=== PATIENT | female | born 1940 | race Caucasian/White ===

== ENCOUNTER 2016-07-08 14:28 | Inpatient (IN) | payer MEDICARE, MEDICAID ==
[2016-07-08 14:37] VITALS: BMI 32.9
[2016-07-08 15:23] LABS: BASO # 0.1 K/uL (0.0-0.2); BASO % 1.3 % (0.0-2.0); EOS # 0.1 K/uL (0.0-0.7); EOS % 1.1 % (0.0-4.0); HEMATOCRIT 33.5 % (35.0-51.0); LYMPH # 2.6 K/uL (1.0-4.3); LYMPH % 36.4 % (20.0-40.0); MEAN CELL VOLUME 72.1 fL (80.0-94.0); MEAN CORPUSCULAR HEMOGLOBIN 22.3 pg (27.0-31.0); MEAN CORPUSCULAR HGB CONC 30.9 g/dL (33.0-37.0); MEAN PLATELET VOLUME 8.6 fL (7.2-11.7); MONO # 0.5 K/uL (0.0-0.8); MONO % 6.9 % (0.0-10.0); NRBC % 0.1 % (0.0-2.0); RED CELL DISTRIBUTION WIDTH 17.8 % (11.5-14.5); WHITE BLOOD COUNT 7.2 K/uL (4.8-10.8)
[2016-07-08 15:31] LABS: CHLORIDE 103 mmol/L (98-107); SODIUM 139 mmol/L (132-148)
[2016-07-08 15:32] LABS: POTASSIUM 3.3 mmol/L (3.6-5.2)
[2016-07-08 15:33] LABS: URINE BILIRUBIN NEGATIVE (NEGATIVE); URINE BLOOD NEGATIVE (NEGATIVE); URINE COLOR Straw (YELLOW); URINE GLUCOSE (UA) NORMAL (Normal); URINE KETONE NEGATIVE (NEGATIVE); URINE LEUKOCYTE ESTERASE NEG Leu/uL (Negative); URINE PROTEIN NEGATIVE (NEGATIVE); URINE UROBILINOGEN NORMAL mg/dL (0.2-1.0); WBC URINE 1 /hpf (0-5)
[2016-07-08 15:34] LABS: ALB/GLOB RATIO 1.2 (1.0-2.1); ALKALINE PHOSPHATASE 55 U/L (38-126); ALT/SGPT 13 U/L (21-72); AST/SGOT 25 U/L (17-59); BILIRUBIN,TOTAL 0.2 mg/dL (0.2-1.3); BLOOD UREA NITROGEN 10 mg/dL (9-20); CALCIUM 8.3 mg/dl (8.6-10.4); CARBON DIOXIDE 24 mmol/L (22-30); GFR AFRICAN-AMERICAN > 60; GLUCOSE,RANDOM 84 mg/dL (75-110); TOTAL PROTEIN 7.1 g/dL (6.3-8.3)
--- NOTE | 2016-07-08 16:52 | RAD ---
PROCEDURE: CHEST RADIOGRAPH, 1 VIEW. Technique: Single view portable semi erect @ 15:20. HISTORY: chest pain COMPARISON: None available. FINDINGS: LUNGS: Clear. PLEURA: No pneumothorax or pleural fluid seen. CARDIOVASCULAR: No radiographic findings to suggest acute or significant cardiovascular disease. OSSEOUS STRUCTURES: No significant abnormalities. VISUALIZED UPPER ABDOMEN: Normal. OTHER FINDINGS: None. IMPRESSION: No active disease.
--- NOTE | 2016-07-08 17:02 | C.PDOC ---
History Of Present Illness 76 y/o female presents to the ED with complains of substernal chest pain which onset earlier today; pain is dull and nonradiating. Pt denies SOB, fever, cough , vomiting or any other complaints. Pt was given aspirin and nitroglycerin by EMS prior to arrival. Pt currently denies any chest pain. PMD Linda Tinoco, no recent cardiac workup. Chief Complaint (Nursing): Chest Pain History Per: Patient History/Exam Limitations: no limitations Onset/Duration Of Symptoms: Hrs Current Symptoms Are (Timing): Gone Severity: Mild Quality: Dull Modifying Factors: None Nitro Therapy Administered: Per EMS Recent travel outside of the [place]: No Past Medical History Reviewed: Historical Data, Nursing Documentation, Vital Signs Vital Signs: Last Vital Signs Temp 98.4 F 07/08/16 14:35 Pulse 64 07/08/16 17:03 Resp 17 07/08/16 17:03 BP 133/62 07/08/16 17:03 Pulse Ox 97 07/08/16 17:04 - Medical History PMH: HTN, Hypercholesterolemia Family History: States: Unknown Family Hx - Social History Hx Alcohol Use: No Hx Substance Use: No - Immunization History Hx Tetanus Toxoid Vaccination: Yes (2015) Hx Influenza Vaccination: Yes (2016) Hx Pneumococcal Vaccination: No Review Of Systems Except As Marked, All Systems Reviewed And Found Negative. Constitutional: Negative for: Fever Cardiovascular: Positive for: Chest Pain (resolved). Negative for: Palpitations Respiratory: Negative for: Cough, Shortness of Breath Gastrointestinal: Negative for: Nausea, Vomiting Physical Exam - Physical Exam Appears: Non-toxic, No Acute Distress Skin: Warm, Dry, No Rash Head: Atraumatic, Normacephalic Neck: Normal ROM, Supple Chest: Symmetrical Cardiovascular: Rhythm Regular, No Murmur Respiratory: Normal Breath Sounds, No Rales, No Rhonchi, No Wheezing Gastrointestinal/Abdominal: Soft, No Tenderness Extremity: No Pedal Edema Extremity: Bilateral: Atraumatic Neurological/Psych: Oriented x3 ED Course And Treatment - Laboratory Results Result Diagrams: 07/08/16 15:15 07/08/16 15:15 ECG: Interpreted By Me, Viewed By Me ECG Rhythm: Sinus Rhythm Interpretation Of ECG: normal intervals and axis Rate From EC (BPM) O2 Sat by Pulse Oximetry: 97 (on room air) Progress Note: Spoke to Linda Tinoco, will admit patient to telemetry. Disposition Discussed With : Lana iTnoco - Disposition Disposition: HOSPITALIZED Disposition Time: 16:00 Condition: STABLE - Clinical Impression Clinical Impression: Chest pain - Scribe Statement The provider has reviewed the documentation as recorded by the Germaniaibankit Gomez Provider Attestation: All medical record entries made by the Germaniaibe were at my direction and personally dictated by me. I have reviewed the chart and agree that the record accurately reflects my personal performance of the history, physical exam, medical decision making, and the department course for this patient. I have also personally directed, reviewed, and agree with the discharge instructions and disposition.
--- NOTE | 2016-07-08 18:50 | CP.PCM.HP ---
History of Present Illness - History of Present Illness History of Present Illness: 76-year-old female presented to ED with complaints of substernal chest pain which onset earlier today. Pain is dull and nonradiating. Patient denies SOB, fever, cough, vomiting or any other complaints. Patient was given aspirin and nitroglycerin by EMS prior to arrival. Patient currently denies any chest pain. Present on Admission - Present on Admission Any Indicators Present on Admission: No Past Patient History - Past Social History Smoking Status: Never Smoked - CARDIAC Hx Hypercholesterolemia: Yes Hx Hypertension: Yes - PSYCHIATRIC Hx Substance Use: No - SURGICAL HISTORY Hx Surgeries: Yes Other/Comment: bone growth surgery near buttock area - ANESTHESIA Hx Anesthesia: No Meds Allergies/Adverse Reactions: Allergies Allergy/AdvReac Type Severity Reaction Status Date / Time ibuprofen [From Motrin] Allergy VOMITING Verified 07/08/16 14:36 Results - Vital Signs Recent Vital Signs: Last Vital Signs Temp 98.4 F 07/08/16 14:35 Pulse 64 07/08/16 17:03 Resp 17 07/08/16 17:03 BP 133/62 07/08/16 17:03 Pulse Ox 97 07/08/16 17:57 - Labs Result Diagrams: 07/09/16 11:24 07/09/16 11:24 Assessment & Plan (1) Abrasion hand Status: Acute (2) Chest pain Status: Acute (3) Contusion of knee, right Status: Acute (4) HTN (hypertension) Status: Acute (5) Prophylactic measure Status: Acute (6) Right wrist sprain Status: Acute - Assessment and Plan (Free Text) Plan: Consult cardiology Pending cardiac enzymes Aspirin Microzide Lovenox Protonix
[2016-07-08] MEDS ORDERED: Potassium Chloride 20 mEq ER Tab PO STA (19:54)
--- NOTE | 2016-07-09 07:15 | CP.PCM.PN ---
Subjective - Date & Time of Evaluation Date of Evaluation: 07/09/16 Time of Evaluation: 09:00 - Subjective Subjective: Dr. Tinoco service: Patient seen and examined in room. Patient says she gets sharp stabbing chest pain that last a few seconds radiating to her back. Patient says she never had the same kind of chest pain before. She denies shortness of breath, palpitations, cough, fever, chills, nausea, vomiting, or diaphoresis. Objective - Vital Signs/Intake and Output Vital Signs (last 24 hours): Temp Pulse Resp BP Pulse Ox 98 F 66 20 124/69 99 07/08/16 23:05 07/08/16 23:05 07/08/16 23:05 07/08/16 23:05 07/08/16 23:05 Intake and Output: 07/09/16 07/09/16 06:59 18:59 Intake Total 120 Balance 120 - Medications Medications: Current Medications Aspirin (Aspirin) 325 mg PO DAILY [facility] Enoxaparin Sodium (Lovenox) 40 mg SC DAILY [facility] Pantoprazole Sodium (Protonix Ec Tab) 40 mg PO DAILY [facility] Potassium Chloride (K-Dur 20 Meq Er Tab) 40 meq PO 0800 [facility] - Constitutional Appears: Non-toxic, No Acute Distress - Head Exam Head Exam: ATRAUMATIC, NORMAL INSPECTION, NORMOCEPHALIC - Eye Exam Eye Exam: Normal appearance - ENT Exam ENT Exam: Normal Exam - Respiratory Exam Respiratory Exam: Clear to Ausculation Bilateral. absent: Rhonchi, Wheezes - Cardiovascular Exam Cardiovascular Exam: REGULAR RHYTHM, RRR, +S1, +S2, Murmur. absent: Gallop, Rubs - GI/Abdominal Exam GI & Abdominal Exam: Soft, Normal Bowel Sounds. absent: Tenderness - Extremities Exam Extremities Exam: Normal Inspection. absent: Pedal Edema - Psychiatric Exam Psychiatric exam: Normal Affect, Normal Mood Assessment and Plan (1) Chest pain Assessment & Plan: Patient admitted yesterday for chest pain, she has a abnormal stress test from [address]. consulted [address] Jefferson and also ordered an echo, cardiac enzymes are negative, patient given 325 of Aspirin, continue her htn medication. Status: Acute (2) HTN (hypertension) Assessment & Plan: continue her home HCTZ Status: Acute (3) Prophylactic measure Assessment & Plan: Protonix 40mg Lovenox 40mg Status: Acute
[2016-07-09] MEDS: Potassium Chloride 20 mEq ER Tab PO SCH (08:50)
[2016-07-09] MEDS: Enoxaparin 40 mg Syringe SC SCH (09:14)
[2016-07-09] MEDS: Pantoprazole 40 mg EC Tab PO SCH (09:15)
[2016-07-09 11:41] LABS: BASO % 0.4 % (0.0-2.0); EOS % 0.7 % (0.0-4.0); HEMATOCRIT 34.2 % (34.0-47.0); LYMPH # 1.9 K/uL (1.0-4.3); LYMPH % 36.4 % (20.0-40.0); MEAN CELL VOLUME 71.8 fL (81.0-99.0); MEAN CORPUSCULAR HEMOGLOBIN 22.3 pg (27.0-31.0); MEAN CORPUSCULAR HGB CONC 31.1 g/dL (33.0-37.0); MEAN PLATELET VOLUME 8.6 fL (7.2-11.7); MONO # 0.4 K/uL (0.0-0.8); MONO % 6.8 % (0.0-10.0); NRBC % 0.1 % (0.0-2.0); RED CELL DISTRIBUTION WIDTH 17.7 % (11.5-14.5); WHITE BLOOD COUNT 5.3 K/uL (4.8-10.8)
[2016-07-09 12:07] LABS: CHLORIDE 101 mmol/L (98-107); SODIUM 140 mmol/L (132-148)
[2016-07-09 12:08] LABS: POTASSIUM 3.8 mmol/L (3.6-5.2)
[2016-07-09 12:10] LABS: ALB/GLOB RATIO 1.2 (1.0-2.1); ALKALINE PHOSPHATASE 55 U/L (38-126); ALT/SGPT 15 U/L (9-52); AST/SGOT 23 U/L (14-36); BILIRUBIN,TOTAL 0.3 mg/dL (0.2-1.3); BLOOD UREA NITROGEN 11 mg/dL (7-17); CARBON DIOXIDE 27 mmol/L (22-30); GFR AFRICAN-AMERICAN > 60; GLUCOSE,RANDOM 107 mg/dL (65-105); PHOSPHOROUS 3.2 mg/dL (2.5-4.5); TOTAL PROTEIN 7.1 g/dL (6.3-8.3)
[2016-07-09 12:11] LABS: CALCIUM 9.1 mg/dl (8.6-10.4); MAGNESIUM 2.1 mg/dL (1.6-2.3)
--- NOTE | 2016-07-09 13:31 | CP.PCM.PN ---
Subjective - Date & Time of Evaluation Date of Evaluation: 07/09/16 Time of Evaluation: 10:20 - Subjective Subjective: denies chest pain currently Objective - Vital Signs/Intake and Output Vital Signs (last 24 hours): Temp Pulse Resp BP Pulse Ox 97.6 F 67 18 142/85 96 07/09/16 07:10 07/09/16 07:10 07/09/16 07:10 07/09/16 07:10 07/09/16 07:10 Intake and Output: 07/09/16 07/09/16 06:59 18:59 Intake Total 120 Balance 120 - Medications Medications: Current Medications Aspirin (Aspirin Chewable) 81 mg PO DAILY [facility] Enoxaparin Sodium (Lovenox) 40 mg SC DAILY [facility] Last Admin: 07/09/16 09:14 Dose: 40 mg Hydrochlorothiazide (Microzide) 12.5 mg PO DAILY [facility] Last Admin: 07/09/16 09:15 Dose: 12.5 mg Pantoprazole Sodium (Protonix Ec Tab) 40 mg PO DAILY [facility] Last Admin: 07/09/16 09:15 Dose: 40 mg Potassium Chloride (K-Dur 20 Meq Er Tab) 40 meq PO 0800 [facility] Last Admin: 07/09/16 08:50 Dose: 40 meq - Labs Labs: 07/09/16 11:24 07/09/16 11:24 - Constitutional Appears: Well - Head Exam Head Exam: ATRAUMATIC, NORMAL INSPECTION, NORMOCEPHALIC - Eye Exam Eye Exam: EOMI, Normal appearance, PERRL Pupil Exam: NORMAL ACCOMODATION, PERRL - ENT Exam ENT Exam: Mucous Membranes Moist, Normal Exam - Neck Exam Neck Exam: Full ROM, Normal Inspection. absent: Lymphadenopathy - Respiratory Exam Respiratory Exam: Decreased Breath Sounds - Cardiovascular Exam Cardiovascular Exam: REGULAR RHYTHM, +S1, +S2 - GI/Abdominal Exam GI & Abdominal Exam: Soft, Diminished Bowel Sounds - Rectal Exam Rectal Exam: Deferred Assessment and Plan - Assessment and Plan (Free Text) Plan: current meds: Aspirin Enoxaparin Hydrochlorothiazide Pantoprazole Potassium Chloride troponin -ve f/u Dr. Jefferson
[2016-07-09 17:16] VITALS: RESP 20
--- NOTE | 2016-07-09 22:33 | CP.PCM.CON ---
History of Present Illness - History of Present Illness History of Present Illness: Patient seen and evaluated Admitted with chest pain Stress test Tuesday 76 y/o female presents to the ED with complains of substernal chest pain which onset earlier yesterday; pain is dull and nonradiating. Pt denies SOB, fever, cough, vomiting or any other complaints. Pt was given aspirin and nitroglycerin by EMS prior to arrival. Pt currently denies any chest pain. PMD Linda Tinoco, no recent cardiac workup. Chief Complaint (Nursing): Chest Pain History Per: Patient History/Exam Limitations: no limitations Onset/Duration Of Symptoms: Hrs Current Symptoms Are (Timing): Gone Severity: Mild Quality: Dull Modifying Factors: None Nitro Therapy Administered: Per EMS Recent travel outside of the [place]: No - Medical History PMH: HTN, Hypercholesterolemia Family History: States: Unknown Family Hx - Social History Hx Alcohol Use: No Hx Substance Use: No - Immunization History Hx Tetanus Toxoid Vaccination: Yes (2015) Hx Influenza Vaccination: Yes (2015) Hx Pneumococcal Vaccination: No Review Of Systems Except As Marked, All Systems Reviewed And Found Negative. Constitutional: Negative for: Fever Cardiovascular: Positive for: Chest Pain (resolved). Negative for: Palpitations Respiratory: Negative for: Cough, Shortness of Breath Gastrointestinal: Negative for: Nausea, Vomiting Physical Exam - Physical Exam Appears: Non-toxic, No Acute Distress Skin: Warm, Dry, No Rash Head: Atraumatic, Normacephalic Neck: Normal ROM, Supple Chest: Symmetrical Cardiovascular: Rhythm Regular, No Murmur Respiratory: Normal Breath Sounds, No Rales, No Rhonchi, No Wheezing Gastrointestinal/Abdominal: Soft, No Tenderness Extremity: No Pedal Edema Extremity: Bilateral: Atraumatic Neurological/Psych: Oriented x3 Past Patient History - Past Social History Smoking Status: Never Smoked - CARDIAC Hx Hypercholesterolemia: Yes Hx Hypertension: Yes - PULMONARY Hx Respiratory Disorders: No - NEUROLOGICAL Hx Neurological Disorder: No - HEENT Hx HEENT Problems: No - RENAL Hx Chronic Kidney Disease: No - ENDOCRINE/METABOLIC Hx Endocrine Disorders: No - HEMATOLOGICAL/ONCOLOGICAL Hx Blood Transfusions: No - INTEGUMENTARY Hx Dermatological Problems: No - MUSCULOSKELETAL/RHEUMATOLOGICAL Hx Falls: No - GASTROINTESTINAL Hx Gastrointestinal Disorders: No - GENITOURINARY/GYNECOLOGICAL Hx Genitourinary Disorders: No - PSYCHIATRIC Hx Psychophysiologic Disorder: No Hx Substance Use: No - SURGICAL HISTORY Hx Surgeries: Yes Other/Comment: bone growth surgery near buttock area - ANESTHESIA Hx Anesthesia: Yes Hx Anesthesia Reactions: No Hx Malignant Hyperthermia: No Has any member of the family had a problem w/ anesthesia?: No Meds Allergies/Adverse Reactions: Allergies Allergy/AdvReac Type Severity Reaction Status Date / Time ibuprofen [From Motrin] Allergy VOMITING Verified 07/08/16 14:36 - Medications Medications: Current Medications Aspirin (Aspirin Chewable) 81 mg PO DAILY [facility] Enoxaparin Sodium (Lovenox) 40 mg SC DAILY [facility] Last Admin: 07/09/16 09:14 Dose: 40 mg Hydrochlorothiazide (Microzide) 12.5 mg PO DAILY [facility] Last Admin: 07/09/16 09:15 Dose: 12.5 mg Pantoprazole Sodium (Protonix Ec Tab) 40 mg PO DAILY [facility] Last Admin: 07/09/16 09:15 Dose: 40 mg Potassium Chloride (K-Dur 20 Meq Er Tab) 40 meq PO 0800 [facility] Last Admin: 07/09/16 08:50 Dose: 40 meq Results - Vital Signs Recent Vital Signs: Last Vital Signs Temp 98.1 F 07/09/16 16:00 Pulse 65 07/09/16 16:00 Resp 20 07/09/16 16:00 BP 119/80 07/09/16 16:00 Pulse Ox 98 07/09/16 16:00 - Labs Result Diagrams: 07/09/16 11:24 07/09/16 11:24 Labs: Laboratory Results - last 24 hr 07/09/16 07/09/16 03:39 11:24 WBC 5.3 RBC 4.76 Hgb 10.6 L Hct 34.2 MCV 71.8 L MCH 22.3 L MCHC 31.1 L RDW 17.7 H Plt Count 335 MPV 8.6 Neut % (Auto) 55.7 Lymph % (Auto) 36.4 [place] % (Auto) 6.8 Eos % (Auto) 0.7 Baso % (Auto) 0.4 Neut # 2.9 Lymph # 1.9 [place]field # 0.4 Eos # 0.0 Baso # 0.0 Sodium 140 Potassium 3.8 Chloride 101 Carbon Dioxide 27 Anion Gap 16 BUN 11 Creatinine 0.8 Est GFR ( Amer) > 60 Est GFR (Non-Af Amer) > 60 Random Glucose 107 H Calcium 9.1 Phosphorus 3.2 Magnesium 2.1 Total Bilirubin 0.3 AST 23 ALT 15 Alkaline Phosphatase 55 Total Creatine Kinase 60 54 CK-MB (Mass) 0.47 0.53 Troponin I, Quant < 0.0120 < 0.0120 Total Protein 7.1 Albumin 3.9 Globulin 3.2 Albumin/Globulin Ratio 1.2 Assessment & Plan - Assessment and Plan (Free Text) Assessment: Assessment and Plan (1) Chest pain Assessment & Plan: Patient admitted yesterday for chest pain, she has a abnormal stress test from 2012. Repeat stress test Troponins negative Status: Acute (2) HTN (hypertension) Assessment & Plan: continue her home HCTZ Status: Acute (3) Prophylactic measure Assessment & Plan: Protonix 40mg Lovenox 40mg Status: Acute
[2016-07-10] MEDS: Potassium Chloride 20 mEq ER Tab PO SCH (08:09)
[2016-07-10] MEDS: Pantoprazole 40 mg EC Tab PO SCH (09:07)
[2016-07-10] MEDS: Enoxaparin 40 mg Syringe SC SCH (09:07)
--- NOTE | 2016-07-10 10:27 | CP.PCM.PN ---
Subjective - Date & Time of Evaluation Date of Evaluation: 07/10/16 Time of Evaluation: 11:00 - Subjective Subjective: clinically same Objective - Vital Signs/Intake and Output Vital Signs (last 24 hours): Temp Pulse Resp BP Pulse Ox 97.6 F 85 20 135/85 96 07/10/16 08:40 07/10/16 08:40 07/10/16 08:40 07/10/16 08:40 07/10/16 08:40 Intake and Output: 07/10/16 07/10/16 06:59 18:59 Intake Total 240 Balance 240 - Medications Medications: Current Medications Aspirin (Aspirin Chewable) 81 mg PO DAILY [facility] Last Admin: 07/10/16 09:07 Dose: 81 mg Enoxaparin Sodium (Lovenox) 40 mg SC DAILY [facility] Last Admin: 07/10/16 09:07 Dose: 40 mg Hydrochlorothiazide (Microzide) 12.5 mg PO DAILY [facility] Last Admin: 07/10/16 09:07 Dose: 12.5 mg Pantoprazole Sodium (Protonix Ec Tab) 40 mg PO DAILY [facility] Last Admin: 07/10/16 09:07 Dose: 40 mg Potassium Chloride (K-Dur 20 Meq Er Tab) 40 meq PO 0800 [facility] Last Admin: 07/10/16 08:09 Dose: 40 meq - Labs Labs: 07/09/16 11:24 07/09/16 11:24 - Constitutional Appears: Well - Head Exam Head Exam: ATRAUMATIC, NORMAL INSPECTION, NORMOCEPHALIC - Eye Exam Eye Exam: EOMI, Normal appearance, PERRL Pupil Exam: NORMAL ACCOMODATION, PERRL - ENT Exam ENT Exam: Mucous Membranes Moist, Normal Exam - Neck Exam Neck Exam: Full ROM, Normal Inspection. absent: Lymphadenopathy - Respiratory Exam Respiratory Exam: Decreased Breath Sounds - Cardiovascular Exam Cardiovascular Exam: REGULAR RHYTHM, +S1, +S2 - GI/Abdominal Exam GI & Abdominal Exam: Soft, Diminished Bowel Sounds - Rectal Exam Rectal Exam: Deferred Assessment and Plan - Assessment and Plan (Free Text) Plan: DR. mena continue meds as ordered repeat stress test
--- NOTE | 2016-07-10 13:47 | CARD ---
APPROVED REPORT EXAM: Two-dimensional and M-mode echocardiogram with Doppler and color Doppler. Other Information Quality : AverageRhythm : NSR INDICATION Chest Pain RISK FACTORS Hypertension M-Mode DIMENSIONS RVDd0.97 (2.1-3.2cm)Left Atrium (MM)3.95 (2.5-4.0cm) IVSd0.70 (0.7-1.1cm)Aortic Root2.84 (2.2-3.7cm) LVDd5.31 (4.0-5.6cm)Aortic Cusp Exc.1.66 (1.5-2.0cm) PWd0.82 (0.7-1.1cm)FS (%) 29 % LVDs3.77 (2.0-3.8cm)LVEF (%)55 (>50%) Mitral Valve MV E Bidnulyl84.8cm/sMV A Ipuzcoox13.3cm/sE/A ratio0.9 TDI E/Lateral E'0.0E/Medial E'0.0 Tricuspid Valve TR Peak Hhlccatk342dx/sTR Peak Gr.[id number] LEFT VENTRICLE The left ventricle is normal size. There is normal left ventricular wall thickness. The left ventricular function is normal. The left ventricular ejection fraction is within the normal range. No regional wall motion abnormalities noted. The left ventricular diastolic function is normal. No left ventricle thrombus noted on this study. There is no ventricular septal defect visualized. There is no left ventricular aneurysm. There is no mass noted in the left ventricle. RIGHT VENTRICLE The right ventricle is normal size. There is normal right ventricular wall thickness. The right ventricular systolic function is normal. ATRIA The left atrium size is normal. The right atrium size is normal. The interatrial septum is intact with no evidence for an atrial septal defect. AORTIC VALVE The aortic valve is normal in structure and function. No aortic regurgitation is present. There is no aortic valvular stenosis. There is no aortic valvular vegetation. MITRAL VALVE The mitral valve is normal in structure and function. There is no evidence of mitral valve prolapse. There is no mitral valve stenosis. Mitral regurgitation is mild. TRICUSPID VALVE The tricuspid valve is normal in structure and function. There is mild tricuspid regurgitation. Right ventricular systolic pressure is estimated at less than 30 mmHg. There is no tricuspid valve prolapse or vegetation. There is no tricuspid valve stenosis. PULMONIC VALVE The pulmonary valve is normal in structure and function. There is no pulmonic valvular regurgitation. There is no pulmonic valvular stenosis. GREAT VESSELS The aortic root is normal in size. The ascending aorta is normal in size. The pulmonary artery is normal. The IVC is normal in size and collapses >50% with inspiration. PERICARDIAL EFFUSION The pericardium appears normal. There is no pleural effusion. <Conclusion> The left ventricular function is normal. The left ventricular ejection fraction is within the normal range. No regional wall motion abnormalities noted. Mitral regurgitation is mild.
--- NOTE | 2016-07-10 15:21 | CARD ---
APPROVED REPORT EKG Measurement Heart [id number] <Conclusion> Normal sinus rhythm Nonspecific ST and T wave abnormality Abnormal ECG
[2016-07-10 18:30] VITALS: O2SAT 98
--- NOTE | 2016-07-10 20:19 | CP.PCM.PN ---
Subjective - Date & Time of Evaluation Date of Evaluation: 07/10/16 Time of Evaluation: 13:05 - Subjective Subjective: Patient seen and evaluated Sleeping comfortably For stress test Tuesday Review Of Systems Except As Marked, All Systems Reviewed And Found Negative. Constitutional: Negative for: Fever Cardiovascular: Positive for: Chest Pain (resolved). Negative for: Palpitations Respiratory: Negative for: Cough, Shortness of Breath Gastrointestinal: Negative for: Nausea, Vomiting Physical Exam - Physical Exam Appears: Non-toxic, No Acute Distress Skin: Warm, Dry, No Rash Head: Atraumatic, Normacephalic Neck: Normal ROM, Supple Chest: Symmetrical Cardiovascular: Rhythm Regular, No Murmur Respiratory: Normal Breath Sounds, No Rales, No Rhonchi, No Wheezing Gastrointestinal/Abdominal: Soft, No Tenderness Extremity: No Pedal Edema Extremity: Bilateral: Atraumatic Neurological/Psych: Oriented x3 Objective - Vital Signs/Intake and Output Vital Signs (last 24 hours): Temp Pulse Resp BP Pulse Ox 97.3 F L 85 20 149/84 98 07/10/16 15:00 07/10/16 16:00 07/10/16 15:00 07/10/16 15:00 07/10/16 15:00 Intake and Output: 07/10/16 07/11/16 18:59 06:59 Intake Total 480 Balance 480 - Medications Medications: Current Medications Aspirin (Aspirin Chewable) 81 mg PO DAILY [facility] Last Admin: 07/10/16 09:07 Dose: 81 mg Enoxaparin Sodium (Lovenox) 40 mg SC DAILY [facility] Last Admin: 07/10/16 09:07 Dose: 40 mg Hydrochlorothiazide (Microzide) 12.5 mg PO DAILY [facility] Last Admin: 07/10/16 09:07 Dose: 12.5 mg Pantoprazole Sodium (Protonix Ec Tab) 40 mg PO DAILY [facility] Last Admin: 07/10/16 09:07 Dose: 40 mg Potassium Chloride (K-Dur 20 Meq Er Tab) 40 meq PO 0800 [facility] Last Admin: 07/10/16 08:09 Dose: 40 meq - Labs Labs: 07/09/16 11:24 07/09/16 11:24 Assessment and Plan - Assessment and Plan (Free Text) Assessment: (1) Chest pain Assessment & Plan: Patient admitted yesterday for chest pain, she has a abnormal stress test from 2012. Repeat stress test Troponins negative Status: Acute (2) HTN (hypertension) Assessment & Plan: continue her home HCTZ Status: Acute (3) Prophylactic measure Assessment & Plan: Protonix 40mg Lovenox 40mg Status: Acute
[2016-07-11 08:48] VITALS: BP 113/81; PULSE 90; TEMP 98
[2016-07-11] MEDS: Potassium Chloride 20 mEq ER Tab PO SCH (09:25)
[2016-07-11] MEDS: Enoxaparin 40 mg Syringe SC SCH (09:25)
[2016-07-11] MEDS: Pantoprazole 40 mg EC Tab PO SCH (09:25)
--- NOTE | 2016-07-11 09:38 | CP.PCM.PN ---
Subjective - Date & Time of Evaluation Date of Evaluation: 07/11/16 Time of Evaluation: 08:00 - Subjective Subjective: no more ches pain Objective - Vital Signs/Intake and Output Vital Signs (last 24 hours): Temp Pulse Resp BP Pulse Ox 98.0 F 90 20 113/81 98 07/11/16 08:47 07/11/16 08:47 07/11/16 08:47 07/11/16 08:47 07/11/16 08:47 Intake and Output: 07/11/16 07/11/16 06:59 18:59 Intake Total 480 Balance 480 - Medications Medications: Current Medications Aspirin (Aspirin Chewable) 81 mg PO DAILY [facility] Last Admin: 07/11/16 09:25 Dose: 81 mg Enoxaparin Sodium (Lovenox) 40 mg SC DAILY [facility] Last Admin: 07/11/16 09:25 Dose: 40 mg Hydrochlorothiazide (Microzide) 12.5 mg PO DAILY [facility] Last Admin: 07/11/16 09:25 Dose: 12.5 mg Pantoprazole Sodium (Protonix Ec Tab) 40 mg PO DAILY [facility] Last Admin: 07/11/16 09:25 Dose: 40 mg Potassium Chloride (K-Dur 20 Meq Er Tab) 40 meq PO 0800 [facility] Last Admin: 07/11/16 09:25 Dose: 40 meq - Labs Labs: 07/09/16 11:24 07/09/16 11:24 Assessment and Plan (1) Abrasion hand Status: Acute (2) Chest pain Status: Acute (3) Contusion of knee, right Status: Acute (4) HTN (hypertension) Status: Acute (5) Prophylactic measure Status: Acute (6) Right wrist sprain Status: Acute - Assessment and Plan (Free Text) Plan: f/u after repeat stress test f/u as a outpatient
== END 2016-07-11 14:11 | disposition home or self-care (01) | DRG 313 ==
LOC: C.ER 14:28 → C.9E 16:06 → UNDOADMOB 16:06 → EDSEX 16:06 → OBSVTOIN 16:06 → INTOOBSV 16:06 → C.6T 17:29 → C.9E 17:29 → OBSVTOIN 07-09 14:43 → C.9E 07-09 14:43 → C.6T 07-09 14:43 → UNDODISIN 07-11 14:11
PROVIDERS: ADMIT Internal Medicine Nephrology; ATTEND Internal Medicine Nephrology
DX: R07.89 Other chest pain (principal); I10 Essential (primary) hypertension; E78.00 Pure hypercholesterolemia, unspecified